=== PATIENT | female | born 1960 | race Caucasian/White ===

== ENCOUNTER 2016-08-07 11:41 | Outpatient (CLI) ==
[2016-04-04 10:28] VITALS: BMI 57.2
--- NOTE | 2016-08-07 12:30 | DI ---
EXAM: Cervical spine radiographs. HISTORY: Back pain. COMPARISON: None available. TECHNIQUE: Frontal, lateral and odontoid views. FINDINGS: The normal curvature and alignment are maintained. Vertebral body heights are maintained. There is moderate loss of disc height at C5-6. Endplate osteophyte formation at C5-6 noted. Unco vertebral hypertrophy and facet arthropathy seen throughout the cervical spine, greater in the lower cervical spine. No fracture or subluxation detected. Prevertebral soft tissues are unremarkable. IMPRESSION: Multilevel degenerative changes, greatest at C5-6. Consider MRI if further evaluation is needed.
== END 2016-08-07 11:42 | disposition home or self-care (01) ==
LOC: RAD 11:41
PROVIDERS: ATTEND Nurse Practitioner Family
DX: M54.2 Cervicalgia (principal)

== ENCOUNTER 2016-08-09 07:57 | Outpatient (CLI) ==
[2016-04-04 10:28] VITALS: BMI 57.2
--- NOTE | 2016-08-09 16:10 | MRI ---
EXAM: Cervical spine MRI without contrast. HISTORY: Cervical disc degeneration. COMPARISON: Cervical spine radiographs 08/07/2016. TECHNIQUE: Multiplanar, multisequence MR images were acquired cervical spine without contrast. FINDINGS: The craniocervical junction is unremarkable. The cervical cord has normal signal intensi ty. There is under pneumatization of the inferior left mastoid air cells with mild mucosal thickeni ng in several inferior left mastoid air cells. Mild mucosal thickening and a small amount of fluid i s also present in a mild number of the inferior right mastoid air cells. There is mild mucosal thic kening in the right maxillary sinus and a small mucous retention cyst in the left. There is mild st raightening of the usual cervical lordosis and 1 mm retrolisthesis of C5 on C6. The cervical verteb ra are normal in height and intrinsic bone marrow signal. There is osteophytosis with disc space na rrowing and degenerative endplate changes at C5-6 and C6-7. A small benign intraosseous hemangioma is present at C7. There are no paravertebral masses. Small perineural cysts are present. Visualiz ed lung apices are clear. C2-3: The intervertebral disc is normal. C3-4: There is a mild disc bulge and minor bilateral uncovertebral hypertrophy. There is no forami nal stenosis or central canal stenosis. C4-5: There is a minor left posterior disc osteophyte complex and mild left neural foraminal stenos is. C5-6: There is a diffuse disc osteophyte complex with a more focal right paracentral component that minimally indents the right ventral cervical cord. Ligamentum flavum hypertrophy and bilateral unco vertebral hypertrophy are present. There is mild spinal stenosis and mild to moderate bilateral for aminal stenosis. AP diameter of the thecal sac is 9.3 mm. C6-7: There is a diffuse disc osteophyte complex with a more focal left paracentral dorsal bony rid ge that mildly indents the cervical cord. Ligamentum flavum hypertrophy and moderate left uncoverte bral hypertrophy is present. This causes mild spinal stenosis and mild left foraminal stenosis. AP diameter of the thecal sac is 9.4 mm. C7-T1:. There is a mild disc bulge that is asymmetric to the right with right posterior endplate ost eophytes. The disc component is larger than the osteophyte component. This merges with right uncov ertebral hypertrophy. There is mild right foraminal stenosis. T1-2: There is a dorsal spondylitic ridge with a small central disc extrusion that is incompletely visualized. IMPRESSION: 1. Mild cervical degenerative spondylosis with mild spinal stenosis at C5-6 and C6-7. 2. Central disc herniation T1-2.
== END 2016-08-09 07:58 | disposition home or self-care (01) ==
LOC: RAD 07:57
PROVIDERS: ATTEND Nurse Practitioner Family
DX: M50.30 Other cervical disc degeneration, unspecified cervical region (principal)

== ENCOUNTER 2016-08-21 11:10 | Outpatient (CLI) ==
[2016-04-04 10:28] VITALS: BMI 57.2
[2016-08-21 11:47] LABS: BASOPHILS # (AUTO) 0.1 K/uL (0-0.2); BASOPHILS % (AUTO) 1.1 % (0.0-3.0); EOSINOPHILS # (AUTO) 0.3 K/ul (0.0-0.7); EOSINOPHILS % (AUTO) 6.2 % (0.0-7.0); HEMATOCRIT 42.3 % (37.0-47.0); HEMOGLOBIN 14.1 g/dl (12.0-16.0); IMMATURE GRANULOCYTE % (AUTO) 0.2 % (0.0-5.0); LYMPHOCYTES # (AUTO) 1.5 K/uL (0.60-3.4); LYMPHOCYTES % (AUTO) 32.1 (10.0-50.0); MEAN CORPUSCULAR HEMOGLOBIN 27.6 pg (27.0-31.0); MEAN CORPUSCULAR HGB CONC 33.3 (31.8-35.4); MEAN CORPUSCULAR VOLUME 82.9 fl (81.0-99.0); MONOCYTES # (AUTO) 0.5 K/uL (0.4-2.0); MONOCYTES % (AUTO) 10.8 (0-10); NEUTROPHILS # (AUTO) 2.3 K/ul (2.0-6.9); NEUTROPHILS % (AUTO) 49.6; PLATELET COUNT 219 10^3/uL (140-440); WHITE BLOOD COUNT 4.71 K/ul (4.6-10.2)
[2016-08-21 12:05] LABS: ALBUMIN 3.6 g/dL (3.4-5.0); ALBUMIN/GLOBULIN RATIO 1.03; BILIRUBIN,TOTAL 0.57 mg/dL (0.00-1.20); BUN/CREATININE RATIO 12.22; CALCIUM 9.3 mg/dL (8.2-10.2); CHOL/HDL RATIO 3.2 (4.5-5.5); CREATININE 0.9 mg/dL (0.60-1.30); TOTAL PROTEIN 7.1 g/dL (6.4-8.2)
== END 2016-08-21 11:11 | disposition home or self-care (01) ==
LOC: LAB 11:10
PROVIDERS: ATTEND Nurse Practitioner Family
DX: E75.6 Lipid storage disorder, unspecified (principal)
CPT/HCPCS: 36415; 80053; 80061; 85025

== ENCOUNTER 2016-09-11 11:14 | Outpatient (CLI) ==
[2016-04-04 10:28] VITALS: BMI 57.2
--- NOTE | 2016-09-12 08:04 | MAMMO ---
EXAM: Digital screening mammogram HISTORY: Screening mammogram COMPARISON: Mammogram 08/26/2015 FINDINGS: Bilateral CC and MLO views of the breasts were performed digitally and demonstrate fatty breast density (up to 25%). There is no abnormal nodule or calcification. Axillary peripherally calc ified lymph nodes are unchanged. There is no significant interval change. IMPRESSION: No suspicious nodule or calcification RECOMMENDATION: Annual screening mammogram BIRADS category 1: Negative
== END 2016-09-11 11:15 | disposition home or self-care (01) ==
LOC: RAD 11:14
PROVIDERS: ATTEND Nurse Practitioner Family
DX: Z12.31 Encounter for screening mammogram for malignant neoplasm of breast (principal)

== ENCOUNTER 2016-11-29 14:00 | Outpatient (RCR) ==
[2016-04-04 10:28] VITALS: BMI 57.2
--- NOTE | 2016-11-09 16:34 | RS.OPPTEV2 ---
Date of Note: 11/08/16 Visit #: 1 Date of Evaluation: 11/08/16 Payer Source: Medicaid Surgery Performed?: Yes Procedure Performed: Anterior Cervical Fusion 2 levels Date of Procedure: 10/18/16 Treatment Diagnosis: Neck pain, UE weakness, s/p ACF History of Condition/Mechanism of Injury:: Patient reports she had progressive pain and weakness in her UE's for a couple of years prior to having surgery. Prior Level of Function.....Patient was independent with: ADL's, Self Care, Caregiving, Ambulation/Mobility, Community Integration/Access Functional Limitations: ADL's, Reaching, Pushing, Pulling, Lifting, Carrying Current Subjective/complaints:: Patient reports surgery has resolved most of her syptoms. States she still has some shaking in her UE's. She is currently weaning from a rigid cervical collar. States she wears the collar at night and will wear it off and on during the day depending on how her neck feels. She is not driving and has been following her surgeon's instructions to avoid raising her arms over her head or performing any lifting. Reports some tension in the right upper traps region. Reports difficulty with several ADL's and selfcare activites due to having to limit raising her arms over her head and some discomfort in the neck with use of her arms. Medical History Medical History: Hypertension, Arthritis Hx Home Medications: Proventil, Xanax, Lotrel, Wellbutrin, Lodine, Neurontin, Robaxin, Seroquel Patient's Goals: Her goal is to return to her previous level of function. Pain Assessment - Pain Description Pain Location: neck pain Current Pain Intensity: 2/10 Worst Pain Intensity: 10+/10 Functional Outcome Measure Neck Disability Index: 66 - G Codes & Severity Modifier G Codes & Modifier: nA Source of G Code score: NA Observation - Observation Inspection: Patient presents with a clean, well-healing horizontal incision on the right side of the anterior region of the cervical spine. Handedness: Right - ROM Comments: Cervical AROM not asssessed due to proximity of surgery date. Bilateral UE AROM is 75% of normal range with some tension reported in the neck region at end range. - Strength Cervical Extension: 4 Good Cervical Flexion: 4 Good Cervical Lateral Flexion: 4 Good Comments: Bilateral shoulder strength generally 4/5, elbows 4+/5, left wrist extension 4/5, right wrist extension 4+/5. 21 Dealer Strength Left Hand 21 Dealer Strength: 26 lbs. Right Hand 21 Dealer Strength: 34 lbs. Dynamometer Testing Position: 2nd Position Palpation Comments:: Patient demonstrates moderate muscle guarding along bilateral upper traps and minimal to moderate increased tone along the cervical paraspinals. Reports no signficant tenderness in these regions with moderate pressure. Sensation - Sensation Right Upper Extremity: Intact/Normal Left Upper Extremity: Intact/Normal Interventions - Exercise/Activities/Manual Therapy Exercises/Activities: Instructed patient in very gentle cervical stability exercises: head and neck supported nods and rotation in very limited range. Also instructed in gentle neck isometrics. Manual Therapy: NA HOME EXERCISE PROGRAM: very gentle cervical stability exercises: head and neck supported nods and rotation in very limited range. Also instructed in gentle neck isometrics. - Charges Total Direct Minutes: 45 mins Total Treatment Time: 45 mins Procedures billed for this date of service:: Víctor Low complexity X3 Assessment Assessment: Patient presents to therapy three weeks s/p ACF. She demonstrates limited cervical ROM, general weakness of the cervical spine and UE's, and minimal to moderate muscle guarding throughout the upper traps and cervical parspinals. She will benefit from exercises to promote stabilization of the cervical spine and progressed exercises for AROM as appropriate. Education of body mechanics and good posture with help improve her postural awareness. Patient Education: Education of diagnosis, Body/Joint mechanics, Home Exercise Program, Home Safety, Activity Modification, Education of Plan of Care Rehab Potential: Good Short Term Goals Goal #1: Patient independent in basic HEP. Goal to be met by: 11/23/16 Goal #2: Muscle tone along bilateral upper traps decreased to minimal. Goal to be met by: 11/23/16 Goal #3: Bilateral shoulder AROM WFL's without neck discomfort. Goal to be met by: 11/30/16 [place] Goals Goal #1: Pt knows HEP and to continue ex's to maintain functional level at D/C. Goal to be met by: 12/19/16 Goal #2: Score on Neck Disability Index improved to 36. Goal to be met by: 12/19/16 Goal #3: Pt able to perform all selfcare and ADL's without difficulty or discomfort. Goal to be met by: 12/19/16 Goal #4: Patient will demonstrate good postural awareness. Goal to be met by: 12/19/16 Plan - Treatment to be Provided Procedures: Therapeutic Exercises, Therapeutic Activity, Manual Therapy, Patient Education Modalities: Electrical Stimulation, Ultrasound/Phonophoresis, Cryotherapy, Hot Packs - Treatment Plan Frequency: 2-3 X week Duration: 4 weeks ORDER # VISITS AND/OR THROUGH DATE: 12/19/16 - Treatment Code (1) Neck pain Comments: M54.2 (2) Weakness of both upper extremities Comments: M62.81 (3) Status post cervical spinal fusion Comments: Z98.1
--- NOTE | 2016-11-13 11:15 | RS.OPPTDN ---
Subjective Date of Note: 11/13/16 Visit #: 2 Date of Evaluation: 11/08/16 Payer Source: Medicaid Treatment Diagnosis: Neck pain, UE weakness, s/p ACF Current Subjective/complaints:: Patient says her pain is mild right now, but says she does have tightness to both sides of her neck. She says she sleeps with her collar and a particular support pillow. Without the pillow, she is unable to sleep. Pain Assessment - Pain Description Pain Location: neck pain Current Pain Intensity: 2/10 - Treatment Modality: Electrical Stim Unattended Parameters/Method Applied: hivolt 4 small pads @ 65-95 pk volts x 20 mins to bilateral UT Patient Position: Sitting - Heat/Cryotherapy Treatment: Hot Pack (cervical) Interventions - Exercise/Activities/Manual Therapy Exercises/Activities: Patient began gentle passive cspine ROM rotation/SB slow multiple reps. She performs short range scap adduction and shoulder shrugs. Discussed HEP and pain control/positioning at home. Total minutes of Exercise: 13 Manual Therapy: NA HOME EXERCISE PROGRAM: very gentle cervical stability exercises: head and neck supported nods and rotation in very limited range. Also instructed in gentle neck isometrics. - Charges Total Direct Minutes: 13 Total Treatment Time: 33 Procedures billed for this date of service:: hp, estim (un), Assessment: Patient mary lou modality and gentle exercise well with limited range SB and rotation. She admits improved pain and less tension in her shoulders. Patient Education: Education of diagnosis, Body/Joint mechanics, Home Exercise Program, Home Safety, Activity Modification, Education of Plan of Care Patient demonstrates compliance with HEP?: Yes (initiating) Short Term Goals Goal #1: Patient independent in basic HEP. Goal to be met by: 11/23/16 Progress towards Goal:: Progressing Goal #2: Muscle tone along bilateral upper traps decreased to minimal. Goal to be met by: 11/23/16 Goal #3: Bilateral shoulder AROM WFL's without neck discomfort. Goal to be met by: 11/30/16 [place] Goals Goal #1: Pt knows HEP and to continue ex's to maintain functional level at D/C. Goal to be met by: 12/19/16 Goal #2: Score on Neck Disability Index improved to 36. Goal to be met by: 12/19/16 Goal #3: Pt able to perform all selfcare and ADL's without difficulty or discomfort. Goal to be met by: 12/19/16 Goal #4: Patient will demonstrate good postural awareness. Goal to be met by: 12/19/16 Plan PLAN OF CARE EXPIRES ON:: 12/19/16 ORDER # VISITS AND/OR THROUGH DATE: 12/19/16 PLAN: Continue Plan of Care
--- NOTE | 2016-11-15 16:33 | RS.OPPTDN ---
Subjective Date of Note: 11/15/16 Visit #: 3 Date of Evaluation: 11/08/16 Payer Source: Medicaid Treatment Diagnosis: Neck pain, UE weakness, s/p ACF Current Subjective/complaints:: Patient says she is not feeling well today. Says she has been shaky (at both arms and legs). Denies any trouble with blood sugar or BP. Pain Assessment - Pain Description Pain Location: neck pain Current Pain Intensity: 2/10 - Treatment Modality: Electrical Stim Unattended Parameters/Method Applied: hivolt 4 small pads @ 80 pk volts x 20 Treatment Area: bilateral UT and lower cervical paraspinals Patient Position: Sitting - Heat/Cryotherapy Treatment: Hot Pack (cervical) Interventions - Exercise/Activities/Manual Therapy Exercises/Activities: Abbreviated exercises due to patient not feeling well. Cspine ROM passively for SB/rotation. Total minutes of Exercise: 4 Manual Therapy: NA HOME EXERCISE PROGRAM: very gentle cervical stability exercises: head and neck supported nods and rotation in very limited range. Also instructed in gentle neck isometrics. - Charges Total Direct Minutes: 4 Total Treatment Time: 24 Procedures billed for this date of service:: hp, estim (un) Assessment: Patient not feeling well today. Shaky to both arms. Only mild pain to the neck today. Patient Education: Education of diagnosis, Body/Joint mechanics, Home Exercise Program, Home Safety, Activity Modification, Education of Plan of Care Short Term Goals Goal #1: Patient independent in basic HEP. Goal to be met by: 11/23/16 Progress towards Goal:: Progressing Goal #2: Muscle tone along bilateral upper traps decreased to minimal. Goal to be met by: 11/23/16 Goal #3: Bilateral shoulder AROM WFL's without neck discomfort. Goal to be met by: 11/30/16 Energy Director Goals Goal #1: Pt knows HEP and to continue ex's to maintain functional level at D/C. Goal to be met by: 12/19/16 Goal #2: Score on Neck Disability Index improved to 36. Goal to be met by: 12/19/16 Goal #3: Pt able to perform all selfcare and ADL's without difficulty or discomfort. Goal to be met by: 12/19/16 Goal #4: Patient will demonstrate good postural awareness. Goal to be met by: 12/19/16 Plan PLAN OF CARE EXPIRES ON:: 12/19/16 ORDER # VISITS AND/OR THROUGH DATE: 12/19/16 PLAN: Progress Exercises
--- NOTE | 2016-11-20 16:14 | RS.OPPTDN ---
Subjective Date of Note: 11/20/16 Visit #: 4 Date of Evaluation: 11/08/16 Payer Source: Medicaid Treatment Diagnosis: Neck pain, UE weakness, s/p ACF Current Subjective/complaints:: Patient admits improved neck pain and she is weaning from her neck collar while using it mostly in the car or with particular activities. Pain Assessment - Pain Description Pain Location: neck pain Current Pain Intensity: 2/10 - Treatment Modality: Electrical Stim Unattended Parameters/Method Applied: hivolt 2 small pads and 2 large pads to the bilateral lower cervical paraspinals and UT @ 90 pk volts x 20 mins Patient Position: Sitting - Heat/Cryotherapy Treatment: Hot Pack Interventions - Exercise/Activities/Manual Therapy Exercises/Activities: Patient received passive cervical ROM. Shoulder shrugs and scap adduction, cervical neck retraction x 5. Total minutes of Exercise: 12 Manual Therapy: NA HOME EXERCISE PROGRAM: very gentle cervical stability exercises: head and neck supported nods and rotation in very limited range. Also instructed in gentle neck isometrics. - Charges Total Direct Minutes: 12 Total Treatment Time: 32 Procedures billed for this date of service:: hp, estim (Un), ex Assessment: Patient experiencing less neck pain and improved ROM toleration. She is weaning from her brace and denies difficulty as a result. Patient Education: Education of diagnosis, Body/Joint mechanics, Home Exercise Program, Home Safety, Activity Modification, Education of Plan of Care Patient demonstrates compliance with HEP?: Yes Short Term Goals Goal #1: Patient independent in basic HEP. Goal to be met by: 11/23/16 Progress towards Goal:: Progressing Goal #2: Muscle tone along bilateral upper traps decreased to minimal. Goal to be met by: 11/23/16 Goal #3: Bilateral shoulder AROM WFL's without neck discomfort. Goal to be met by: 11/30/16 Care Home Goals Goal #1: Pt knows HEP and to continue ex's to maintain functional level at D/C. Goal to be met by: 12/19/16 Goal #2: Score on Neck Disability Index improved to 36. Goal to be met by: 12/19/16 Goal #3: Pt able to perform all selfcare and ADL's without difficulty or discomfort. Goal to be met by: 12/19/16 Goal #4: Patient will demonstrate good postural awareness. Goal to be met by: 12/19/16 Plan PLAN OF CARE EXPIRES ON:: 12/19/16 ORDER # VISITS AND/OR THROUGH DATE: 12/19/16 PLAN: Continue Plan of Care
--- NOTE | 2016-11-23 14:56 | RS.OPPTDN ---
Subjective Date of Note: 11/23/16 Visit #: 5 Date of Evaluation: 11/08/16 Payer Source: Medicaid Treatment Diagnosis: Neck pain, UE weakness, s/p ACF Current Subjective/complaints:: Patient says she had a good report at her doctor 's office. States she is no longer wearing her neck brace and feels therapy is helping. Pain Assessment - Pain Description Pain Location: neck pain Current Pain Intensity: 2/10 - Treatment Modality: Electrical Stim Unattended Parameters/Method Applied: 2 small pads at the lower cervical paraspinals and 2 large at the UT hivolt x 20 mins @ 120-130 pk volts Patient Position: Sitting - Heat/Cryotherapy Treatment: Hot Pack (cervical) Interventions - Exercise/Activities/Manual Therapy Exercises/Activities: Passive ROM for cspine SB, rotation,. Patient performs shoulder shrugs, scap adduction, neck retraction. Began yellow tband for scap retraction. Total minutes of Exercise: 15 Manual Therapy: NA HOME EXERCISE PROGRAM: very gentle cervical stability exercises: head and neck supported nods and rotation in very limited range. Also instructed in gentle neck isometrics. - Charges Total Direct Minutes: 15 Total Treatment Time: 35 Procedures billed for this date of service:: hp, estim (un), ex Assessment: Patient admits improved pain and mobility to her neck. She received good report from her MD at her follow up. She is only wearing her neck brace with long car rides. She demo improved awareness of posture as well. Patient Education: Education of diagnosis, Body/Joint mechanics, Home Exercise Program, Home Safety, Activity Modification, Education of Plan of Care Patient demonstrates compliance with HEP?: Yes Short Term Goals Goal #1: Patient independent in basic HEP. Goal to be met by: 11/23/16 Progress towards Goal:: Progressing Goal #2: Muscle tone along bilateral upper traps decreased to minimal. Goal to be met by: 11/23/16 Progress towards Goal:: Progressing Goal #3: Bilateral shoulder AROM WFL's without neck discomfort. Goal to be met by: 11/30/16 Progress towards Goal:: Progressing [facility] Goals Goal #1: Pt knows HEP and to continue ex's to maintain functional level at D/C. Goal to be met by: 12/19/16 Goal #2: Score on Neck Disability Index improved to 36. Goal to be met by: 12/19/16 Goal #3: Pt able to perform all selfcare and ADL's without difficulty or discomfort. Goal to be met by: 12/19/16 Goal #4: Patient will demonstrate good postural awareness. Goal to be met by: 12/19/16 Plan PLAN OF CARE EXPIRES ON:: 12/19/16 ORDER # VISITS AND/OR THROUGH DATE: 12/19/16 PLAN: Continue Plan of Care
--- NOTE | 2016-11-27 13:25 | RS.OPPTDN ---
Subjective Date of Note: 11/27/16 Visit #: 6 Date of Evaluation: 11/08/16 Payer Source: Medicaid Treatment Diagnosis: Neck pain, UE weakness, s/p ACF Current Subjective/complaints:: Patient says she can't believe how well she is doing. She says she is pleased with the increase in ROM. Pain Assessment - Pain Description Pain Location: neck pain Current Pain Intensity: 2/10 - Treatment Modality: Electrical Stim Unattended Parameters/Method Applied: hivolt 2 small pads to the lower cervical paraspinals and 2 large at UT @ 130-145 pk volts x 20 mins for muscle guarding and improve mobility/pain Patient Position: Sitting - Heat/Cryotherapy Treatment: Hot Pack Interventions - Exercise/Activities/Manual Therapy Exercises/Activities: Passive ROM for cspine SB, rotation,. Patient performs shoulder shrugs, scap adduction, neck retraction. Began yellow tband for scap retraction. Cane for bilateral shoulder flexion x 10 to shoulder height. Total minutes of Exercise: 15 Manual Therapy: NA HOME EXERCISE PROGRAM: very gentle cervical stability exercises: head and neck supported nods and rotation in very limited range. Also instructed in gentle neck isometrics. - Charges Total Direct Minutes: 15 Total Treatment Time: 35 Procedures billed for this date of service:: hp, estim (un), ex Assessment: Patient demo 75% of passive SB and rotation norm. Less discomfort noted with all motions. Now demo mild to mod muscle guarding throughout bilateral UT and MT. Good mary lou of bilateral UE lift using cane. Patient Education: Education of diagnosis, Body/Joint mechanics, Home Exercise Program, Home Safety, Activity Modification, Education of Plan of Care Patient demonstrates compliance with HEP?: Yes Short Term Goals Goal #1: Patient independent in basic HEP. Goal to be met by: 11/23/16 Progress towards Goal:: Progressing Goal #2: Muscle tone along bilateral upper traps decreased to minimal. Goal to be met by: 11/23/16 Progress towards Goal:: Progressing Goal #3: Bilateral shoulder AROM WFL's without neck discomfort. Goal to be met by: 11/30/16 Progress towards Goal:: Progressing Medical Office Technologist Goals Goal #1: Pt knows HEP and to continue ex's to maintain functional level at D/C. Goal to be met by: 12/19/16 Goal #2: Score on Neck Disability Index improved to 36. Goal to be met by: 12/19/16 Goal #3: Pt able to perform all selfcare and ADL's without difficulty or discomfort. Goal to be met by: 12/19/16 Goal #4: Patient will demonstrate good postural awareness. Goal to be met by: 12/19/16 Plan PLAN OF CARE EXPIRES ON:: 12/19/16 ORDER # VISITS AND/OR THROUGH DATE: 12/19/16 PLAN: Progress Exercises
--- NOTE | 2016-11-29 14:33 | RS.OPPTDN ---
Subjective Date of Note: 11/29/16 Visit #: 7 Date of Evaluation: 11/08/16 Payer Source: Medicaid Treatment Diagnosis: Neck pain, UE weakness, s/p ACF Current Subjective/complaints:: Pleased with her progress,is doing her exercises as directed. Pain Assessment - Pain Description Pain Location: neck pain Current Pain Intensity: 1-2/10 - Treatment Modality: Electrical Stim Unattended Parameters/Method Applied: 20 mins. high volt to cervical/UT's channel 1 (small electrodes) @ 155 pv,channel 2 (large electrodes) @ 130 pv. Patient Position: Sitting - Heat/Cryotherapy Treatment: Hot Pack (concurrent with e-stim) Interventions - Exercise/Activities/Manual Therapy Exercises/Activities: HEP review while on modalities.Abbreviated treatment today due to another appt.,requesting to leave early. Total minutes of Exercise: 0 Manual Therapy: NA Total minutes of Manual Therapy: 0 HOME EXERCISE PROGRAM: very gentle cervical stability exercises: head and neck supported nods and rotation in very limited range. Also instructed in gentle neck isometrics. - Charges Total Direct Minutes: 0 Total Treatment Time: 20 Procedures billed for this date of service:: hp,e-stim Assessment: Cervical ROM not assessed today,modalities only due to having to leave early.She does understand the HEP recommendations ,and to avoid overhead motions at this time. Patient Education: Education of Plan of Care Patient demonstrates compliance with HEP?: Yes Short Term Goals Goal #1: Patient independent in basic HEP. Goal to be met by: 11/23/16 Progress towards Goal:: Progressing Goal #2: Muscle tone along bilateral upper traps decreased to minimal. Goal to be met by: 11/23/16 Progress towards Goal:: Progressing Goal #3: Bilateral shoulder AROM WFL's without neck discomfort. Goal to be met by: 11/30/16 Progress towards Goal:: Progressing Half-Way Goals Goal #1: Pt knows HEP and to continue ex's to maintain functional level at D/C. Goal to be met by: 12/19/16 Goal #2: Score on Neck Disability Index improved to 36. Goal to be met by: 12/19/16 Goal #3: Pt able to perform all selfcare and ADL's without difficulty or discomfort. Goal to be met by: 12/19/16 Goal #4: Patient will demonstrate good postural awareness. Goal to be met by: 12/19/16 Plan PLAN OF CARE EXPIRES ON:: 12/19/16 ORDER # VISITS AND/OR THROUGH DATE: 12/19/16 PLAN: Continue Plan of Care
== END 2016-12-03 ==
PROVIDERS: ATTEND Emergency Medicine
DX: M43.22 Fusion of spine, cervical region (principal)

== ENCOUNTER 2016-12-03 09:00 | Outpatient (CLI) ==
[2016-04-04 10:28] VITALS: BMI 57.2
--- NOTE | 2016-12-03 10:34 | MRI ---
EXAM: MRI lumbar spine without IV contrast. DATE: 03 December 2016. HISTORY: Low back pain and left lower extremity numbness. TECHNIQUE: Sagittal and axial T1W and T2W sequences of the lumbar spine along with sagittal IR and coronal T2W sequences were obtained using 1.2 Katie magnet. No IV contrast. COMPARISON: LS spine series 06 April 2016. MRI L-spine 08 Sep 2015. FINDINGS: There are five hxt-qzl-ypmaxyx lumbar vertebra. Minor (4 degrees) leftward curvature of the lumbar spine is observed. No acute lumbar fracture, subluxation, osseous malignancy, or pars in farct T2 there is defect is evident. Lumbar vertebra are normal in height. Chronic, small Schmorl' s node is seen at the L2 inferior endplate. Mild disc space narrowing is detected at L3-4. Remaini ng intervertebral discs are normal in height. No sacral fracture or stress reaction is evident. SI joints are unremarkable. Conus medullaris terminates at T12. Visible spinal cord is normal. No retroperitoneal lymphadenopathy, paraspinal mass, or aortic aneurysm is detected. Psoas muscles are normal. There is minor bilateral posterior paraspinal muscle fatty infiltration. Visible porti ons of the liver, spleen, adrenal glands and kidneys are limited by breathing motion artifacts, but reveal no definitive malignancy. Segmental analysis: T11-12: Normal. T12-L1: Normal. L1-2: Normal. L2-3: Normal. L3-4: Small concentric disc bulge and minor facet disease cause triangulation of the canal and mini mal bilateral inferior foraminal encroachment. L4-5: Small posterior to foraminal disc bulge, superimposed left paracentral disc protrusion (2.9 m m AP by 9 mm transverse) and mild facet disease cause mild central canal stenosis, minor right tino inal narrowing, and moderate narrowing at the opening to left foramen. Left L4 nerve root contacts t he disc bulge near the lateral aspect of the foramen. L5-S1: Posterior midline disc protrusion (3.3 mm AP x 10.5 mm transverse) and mild facet disease ca use triangulation of the canal and minimal left foraminal narrowing. IMPRESSIONS: 1. Lumbar spine mild facet arthropathy and multilevel DDD. 2. Multilevel central canal stenoses (L3-4: Triangulation of the canal. L4-5: Mild. L5-S1: Trian gulation of canal). 3. Multilevel foraminal narrowing, especially left L4-5. Left L4 nerve root contacts disc bulge ne ar the foramen, and could be a source for left lower extremity pain/radiculopathy.
== END 2016-12-03 09:01 | disposition home or self-care (01) ==
LOC: RAD 09:00
PROVIDERS: ATTEND Nurse Practitioner Family
DX: M12.88 Other specific arthropathies, not elsewhere classified, other specified site (principal)

== ENCOUNTER 2016-12-13 15:00 | Outpatient (RCR) ==
[2016-09-11 11:18] VITALS: BMI 57.2
--- NOTE | 2016-12-04 15:48 | RS.OPPTDN ---
Subjective Date of Note: 12/04/16 Visit #: 8 Date of Evaluation: 11/08/16 Payer Source: Medicaid Treatment Diagnosis: Neck pain, UE weakness, s/p ACF Current Subjective/complaints:: Patient says she is doing well with exercises for her neck. She says her neck pain has been better. Pain Assessment - Pain Description Pain Location: neck pain Current Pain Intensity: 1-2/10 - Treatment Modality: Electrical Stim Unattended Parameters/Method Applied: hivolt 2 large pads UT, 2 small pads at lower cervical paraspinals @ 115 pk volts x 20 mins Patient Position: Sitting - Heat/Cryotherapy Treatment: Hot Pack Interventions - Exercise/Activities/Manual Therapy Exercises/Activities: Patient receives PROM for SB/rotation, scap add, isometric neck retraction, L and R SB, shoulder shrugs, yellow tband scap retraction, 1# wand for bilateral shoulder flexion to 90 degrees. All x 10. Total minutes of Exercise: 16 Manual Therapy: NA HOME EXERCISE PROGRAM: very gentle cervical stability exercises: head and neck supported nods and rotation in very limited range. Also instructed in gentle neck isometrics. - Charges Total Direct Minutes: 16 Total Treatment Time: 36 Procedures billed for this date of service:: hp, estim (un), ex Assessment: Patient progressing well with pain reduction and ability to mary lou increasing exercises without c/o'. Improved ROM demonstrated in the past week visits. Patient Education: Education of diagnosis, Body/Joint mechanics, Home Exercise Program, Home Safety, Activity Modification, Education of Plan of Care Patient demonstrates compliance with HEP?: Yes Short Term Goals Goal #1: Patient independent in basic HEP. Goal to be met by: 11/23/16 Progress towards Goal:: Progressing Goal #2: Muscle tone along bilateral upper traps decreased to minimal. Goal to be met by: 11/23/16 Progress towards Goal:: Progressing Goal #3: Bilateral shoulder AROM WFL's without neck discomfort. Goal to be met by: 11/30/16 Progress towards Goal:: Progressing Phd Intern Goals Goal #1: Pt knows HEP and to continue ex's to maintain functional level at D/C. Goal to be met by: 12/19/16 Goal #2: Score on Neck Disability Index improved to 36. Goal to be met by: 12/19/16 Goal #3: Pt able to perform all selfcare and ADL's without difficulty or discomfort. Goal to be met by: 12/19/16 Goal #4: Patient will demonstrate good postural awareness. Goal to be met by: 12/19/16 Plan PLAN OF CARE EXPIRES ON:: 12/19/16 ORDER # VISITS AND/OR THROUGH DATE: 12/19/16 PLAN: Progress Exercises
--- NOTE | 2016-12-06 15:22 | RS.OPPTDN ---
Subjective Date of Note: 12/06/16 Visit #: 9 Date of Evaluation: 11/08/16 Payer Source: Medicaid Treatment Diagnosis: Neck pain, UE weakness, s/p ACF Current Subjective/complaints:: Patient says she is pleased with how well her neck is feeling and her motion. She says she is able to perform more ADLs Pain Assessment - Pain Description Pain Location: neck pain Current Pain Intensity: 1-2/10 - Treatment Modality: Electrical Stim Unattended Parameters/Method Applied: hivolt 20 mins 1 small, 1 large pad for the L and 1 small, 1 large for the R UT @ 145-155 pk volts Patient Position: Sitting - Heat/Cryotherapy Treatment: Hot Pack Interventions - Exercise/Activities/Manual Therapy Exercises/Activities: Patient receives PROM for SB/rotation, scap add, isometric neck retraction, L and R SB, shoulder shrugs, yellow tband scap retraction, 1 1/2# wand for bilateral shoulder flexion to 90 degrees. All x 10. Red tband for bilateral shoulder ER x 10. 7# digiflexors bilaterally x 10. Total minutes of Exercise: 18 Manual Therapy: NA HOME EXERCISE PROGRAM: very gentle cervical stability exercises: head and neck supported nods and rotation in very limited range. Also instructed in gentle neck isometrics. - Charges Total Direct Minutes: 18 Total Treatment Time: 38 Procedures billed for this date of service:: hp, estim (un), ex Assessment: Patient maintaining low pain level to the neck and is able to demo increased ROM/strength with UE's and cspine. Patient Education: Education of diagnosis, Body/Joint mechanics, Home Exercise Program, Home Safety, Activity Modification, Education of Plan of Care Patient demonstrates compliance with HEP?: Yes Short Term Goals Goal #1: Patient independent in basic HEP. Goal to be met by: 11/23/16 Progress towards Goal:: Met Goal #2: Muscle tone along bilateral upper traps decreased to minimal. Goal to be met by: 11/23/16 Progress towards Goal:: Progressing Goal #3: Bilateral shoulder AROM WFL's without neck discomfort. Goal to be met by: 11/30/16 Progress towards Goal:: Progressing Build Engineer Goals Goal #1: Pt knows HEP and to continue ex's to maintain functional level at D/C. Goal to be met by: 12/19/16 Progress towards goal: Progressing Goal #2: Score on Neck Disability Index improved to 36. Goal to be met by: 12/19/16 Goal #3: Pt able to perform all selfcare and ADL's without difficulty or discomfort. Goal to be met by: 12/19/16 Progress towards goal: Progressing Goal #4: Patient will demonstrate good postural awareness. Goal to be met by: 12/19/16 Progress towards goal: Progressing Plan PLAN OF CARE EXPIRES ON:: 12/19/16 ORDER # VISITS AND/OR THROUGH DATE: 12/19/16 PLAN: Progress Exercises
--- NOTE | 2016-12-11 09:55 | RS.CXNS ---
Date of scheduled appointment: 12/11/16 Type: Cancel Reason for Cancel/NS: patient calls sick
--- NOTE | 2016-12-13 16:41 | RS.OPPTDN ---
Subjective Date of Note: 12/13/16 Visit #: 10 Date of Evaluation: 11/08/16 Payer Source: Medicaid Treatment Diagnosis: Neck pain, UE weakness, s/p ACF Current Subjective/complaints:: Patient says she is quite pleased with progress of her neck. She says all exercises feel good and she is performing tasks easier at home. She says she had a good report from her MD yesterday and will need to begin PT for her back once she has completed for her neck. She expresses being grateful for PT and progress she has made. Pain Assessment - Pain Description Pain Location: neck pain Current Pain Intensity: none - Treatment Modality: Electrical Stim Unattended Parameters/Method Applied: hivolt 1 small and 1 large for L lower cervical paraspinals/UT and 1 small/1 large for the R @ 165 pk volts x 15 mins (for muscle guarding) Patient Position: Sitting - Heat/Cryotherapy Treatment: Hot Pack Interventions - Exercise/Activities/Manual Therapy Exercises/Activities: Patient receives PROM for SB/rotation, scap add, isometric neck retraction, L and R SB, shoulder shrugs, progressed to red tband scap retraction, 1 1/2# wand for bilateral shoulder flexion to 90 degrees. All x 10. Red tband for bilateral shoulder ER x 10. 7# digiflexors bilaterally x 10. Provided HEP with tbands and reassessed for cervical index. Total minutes of Exercise: 17 Manual Therapy: NA HOME EXERCISE PROGRAM: very gentle cervical stability exercises: head and neck supported nods and rotation in very limited range. Also instructed in gentle neck isometrics. - Charges Total Direct Minutes: 17 Total Treatment Time: 37 Procedures billed for this date of service:: hp, estim (un), ex Assessment: Cervical Pain Index: score 17 or 34% impairment. (Eval score was 33 or 66% impairment). Demo AROM WFL and without pain, progressing with all postural exercises and cspine ROM well. Patient Education: Education of diagnosis, Body/Joint mechanics, Home Exercise Program, Home Safety, Activity Modification, Education of Plan of Care Patient demonstrates compliance with HEP?: Yes Short Term Goals Goal #1: Patient independent in basic HEP. Goal to be met by: 11/23/16 Progress towards Goal:: Met Goal #2: Muscle tone along bilateral upper traps decreased to minimal. Goal to be met by: 11/23/16 Progress towards Goal:: Met Goal #3: Bilateral shoulder AROM WFL's without neck discomfort. Goal to be met by: 11/30/16 Progress towards Goal:: Met Cane Flume Watcher Goals Goal #1: Pt knows HEP and to continue ex's to maintain functional level at D/C. Goal to be met by: 12/19/16 Progress towards goal: Met Goal #2: Score on Neck Disability Index improved to 36. Goal to be met by: 12/19/16 Progress towards goal: Met Comments: 34% now and scores 17 Goal #3: Pt able to perform all selfcare and ADL's without difficulty or discomfort. Goal to be met by: 12/19/16 Progress towards goal: Partially Met Goal #4: Patient will demonstrate good postural awareness. Goal to be met by: 12/19/16 Progress towards goal: Met Plan PLAN OF CARE EXPIRES ON:: 12/19/16 ORDER # VISITS AND/OR THROUGH DATE: 12/19/16 PLAN: Plan for Discharge (Patient to begin PT for her back on 01/08/17 per new order)
--- NOTE | 2016-12-18 14:31 | RS.QUICKDC ---
Discharge from PT Date of Discharge: 12/18/16 Number of Visits: 10 Reason for Discharge: Patient has completed original order for her neck s/p ACF and is expresses satisfaction about her results. Patient presents with new order to begin therapy for her back. She wishes to discontinue for her neck since pain is significantly better and mobility has improved. She is performing all HEP and we will start PT for her back in January. See daily notes for specific treatment.
== END 2017-01-03 ==
PROVIDERS: ATTEND Emergency Medicine
DX: M43.22 Fusion of spine, cervical region (principal)

== ENCOUNTER 2017-02-01 10:00 | Outpatient (RCR) ==
[2016-09-11 11:18] VITALS: BMI 57.2
--- NOTE | 2017-01-31 11:40 | RS.OPPTEV2 ---
Date of Note: 01/28/17 Visit #: 1 Date of Evaluation: 01/28/17 Payer Source: Medicaid Surgery Performed?: Yes Treatment Diagnosis: low back pain, radiating symptoms into LE's. History of Condition/Mechanism of Injury:: Patient reports she had progressive pain in her back for a few years. States she has had LE symptoms for two years. She just had cervical fusion surgery in October of this year. Prior Level of Function.....Patient was independent with: ADL's, Self Care, Caregiving, Ambulation/Mobility, Community Integration/Access Functional Limitations: ADL's, Reaching, Pushing, Pulling, Lifting, Carrying, Sitting, Standing, Ambulation, Community Access/Integration Current Subjective/complaints:: Patient reports having symptoms in her LE's for ~ two years. States she gets numbness into the LE's with prolonged sitting. States she loves to play cards, but cannot tolerate sitting long enough to play. She also reports pain into the legs and low back with prolonged walking. She uses a cane for ambulation. She reports having repeated falls. Reports no falls since her neck surgery in October of this year. She cannot tolerate grocery shopping without the use of an electric cart. States she gets limited sleep at night. Reports waking up 3-4 times a night due to back and/or leg pain. States she has not been able to find anything to decrease her pain. She feels her hips and back get hot at times. States she currently has pain in the posterior region of lower thighs. Medical History Medical History: Hypertension, Arthritis Surgical History: Cholecystectomy, Hysterectomy Surgical History Comments:: Cervical spine surgery 10/20, appendectomy Smoking Status: Former smoker Hx Home Medications: Proventil, Xanax, Lotrel, Wellbutrin, Lodine, Neurontin, Robaxin, Seroquel Patient's Goals: Her goal is to get relief of back pain and LE symptoms. Pain Assessment - Pain Description Pain Location: low back and LE pain Current Pain Intensity: 7/10 Worst Pain Intensity: 10/10 Functional Outcome Measure Oswestry LBP: 80 - G Codes & Severity Modifier G Codes & Modifier: NA Source of G Code score: NA Gait - Gait Pattern Gait Comments: Patient ambulates with a straight cane. She demonstrates a cautious gait. She demonstrates no loss of balance. Consistently clears both feet. Demonstrates decreased left hip flexion during swing phase. - ROM Comments: Lumbar flexion is ~50 % of normal range, with reports of right Low back pain. Lumbar extension is limited 50% with reports of low back pain. Sidebending are equally WFL's with no reports of increased pain. Bilateral LE AROM is WFL's. - Strength Comments: Trunk strength generally 4/5. Resisted left hip flexion and abduction elicits pain in the left low back and left hip. Left hip strength 4/ 5 throughout. Right hip strength 4 to 4+/5. Bilateral knees and ankles 4+/5. - Special Tests SLR Test: Negative Left, Negative Right Seated Dural Stretch Test: Negative Left, Negative Right SI Joint Compression: Negative Palpation Comments:: Patient reports tenderness to light touch to the lumbar paraspinals bilaterally. Reports slight tenderness with central PA's over the lower lumbar vertebrae. Reports tenderness over the left greater trochanter and along the IT band of the left LE. Sensation - Sensation Comments: Patient reports less sensitivity to light touch along the left lateral thigh and lower leg. Sensation to deep pressure is intact. Additional Comments: Additional Comments: SLR in supine: right 60 degrees, left 45-50 degrees. Pain with left SLR. Interventions - Exercise/Activities/Manual Therapy Exercises/Activities: NA Manual Therapy: NA HOME EXERCISE PROGRAM: none given at evaluation - Charges Total Direct Minutes: 50 mins Total Treatment Time: 50 mins Procedures billed for this date of service:: EVAL Low X 3 Assessment Assessment: Patient presents to therapy with a diagnosis of Degeneration of lumbar intervertebral disc and spinal stenosis. She reports numbness in her LE' s with prolonged sitting, and pain into the LE's with prolonged standing and walking. Lumbar ROM is limited due to back pain. She report pain with resisted left hip abduction and flexion. Left hip demonstrates less flexibility in the HS. She reports tenderness with palpation to the lumbar paraspinals and the left greater trochanter and IT band. She may be demonstrating symptoms from the lumbar spine, as well as left hip bursitis. She demonstrates potential to get some relief of LE symptoms and back pain with modalites as indicated and exercises to improve trunk and hip strength. Patient Education: Education of diagnosis, Body/Joint mechanics, Home Safety, Education of Plan of Care Rehab Potential: Good Short Term Goals Goal #1: Patient independent in basic HEP. Goal to be met by: 02/13/17 Goal #2: Tenderness to lumbar paraspinals decreased to minimal. Goal to be met by: 02/13/17 Goal #3: LE radiating symptoms localized to the low back. Goal to be met by: 02/13/17 Shelter Goals Goal #1: Pt knows HEP and to continue ex's to maintain functional level at D/c. Goal to be met by: 03/11/17 Goal #2: Score on Oswestry LBP scale improved to 55. Goal to be met by: 03/11/17 Goal #3: Pt will tolerate sitting as needed with minimal back or LE symptoms. Goal to be met by: 03/11/17 Goal #4: Pt able to amb. to perform light grocery shopping w/ minimal back pain. Goal to be met by: 03/11/17 Plan - Treatment to be Provided Procedures: Therapeutic Exercises, Therapeutic Activity, Neuromuscular Rehab, Patient Education Modalities: Electrical Stimulation, Ultrasound/Phonophoresis, Cryotherapy, Hot Packs - Treatment Plan Frequency: 3 X week Duration: 4 weeks ORDER # VISITS AND/OR THROUGH DATE: 03/11/17 - Treatment Code (1) Low back pain Code(s): M54.5 - LOW BACK PAIN Qualifiers: Chronicity: chronic Back pain laterality: unspecified Sciatica presence: unspecified whether sciatica present Qualified Code(s): M54.5 - Low back pain ; G89.29 - Other chronic pain (2) Radicular leg pain Code(s): M54.10 - RADICULOPATHY, SITE UNSPECIFIED Comments: M54.10 (3) Other intervertebral disc degeneration, lumbar region Code(s): M51.36 - OTHER INTERVERTEBRAL DISC DEGENERATION, LUMBAR REGION Comments: M51.36 (4) Lumbar spinal stenosis Code(s): M48.06 - SPINAL STENOSIS, LUMBAR REGION Comments: M48.06
--- NOTE | 2017-02-01 11:03 | RS.OPPTDN ---
Subjective Date of Note: 02/01/17 Visit #: 2 Date of Evaluation: 01/28/17 Payer Source: Medicaid Treatment Diagnosis: low back pain, radiating symptoms into LE's. Current Subjective/complaints:: Patient reports moderate back pain. Reports she is getting out in community more and will try to increase walking. Pain Assessment - Pain Description Pain Location: low back and LE pain Current Pain Intensity: moderate Interventions - Exercise/Activities/Manual Therapy Exercises/Activities: Mat exercise of quad sets, isometric hip add, alt LE lifts , SLR, pelvic tilts, SLR, and isometric trunk rotation. In sitting, red theraband for scapular retraction. Reviewed dx, body mechanics, posture, and instruction in initiation of walking program. Discussion of HEP and patinet given copies. Total minutes of Exercise: 40mins Manual Therapy: NA HOME EXERCISE PROGRAM: Isometric hip add, alt LE lifts, SLR, pelvic tilts. Red theraband for scapular retraction. Begin walking program 3-5mins. - Charges Total Direct Minutes: 40mins Total Treatment Time: 40mins Procedures billed for this date of service:: EX3 Assessment: Patient seems motivated to progress with exercise and walking program. Patient Education: Education of diagnosis, Body/Joint mechanics, Home Exercise Program, Home Safety, Activity Modification Patient demonstrates compliance with HEP?: Yes Short Term Goals Goal #1: Patient independent in basic HEP. Goal to be met by: 02/13/17 Progress towards Goal:: Progressing Goal #2: Tenderness to lumbar paraspinals decreased to minimal. Goal to be met by: 02/13/17 Goal #3: LE radiating symptoms localized to the low back. Goal to be met by: 02/13/17 Nursing Home Goals Goal #1: Pt knows HEP and to continue ex's to maintain functional level at D/c. Goal to be met by: 03/11/17 Goal #2: Score on Oswestry LBP scale improved to 55. Goal to be met by: 03/11/17 Goal #3: Pt will tolerate sitting as needed with minimal back or LE symptoms. Goal to be met by: 03/11/17 Goal #4: Pt able to amb. to perform light grocery shopping w/ minimal back pain. Goal to be met by: 03/11/17 Plan PLAN OF CARE EXPIRES ON:: 03/11/17 ORDER # VISITS AND/OR THROUGH DATE: 03/11/17 PLAN: Progress Exercises
== END 2017-02-02 ==
PROVIDERS: ATTEND Nurse Practitioner Family
DX: M51.36 Other intervertebral disc degeneration, lumbar region (principal); M48.06 Spinal stenosis, lumbar region

== ENCOUNTER 2017-02-28 14:26 | Outpatient (CLI) ==
[2016-09-11 11:18] VITALS: BMI 57.2
[2017-02-28 14:38] LABS: BASOPHILS % (AUTO) 0.5 % (0.0-3.0); EOSINOPHILS # (AUTO) 0.3 K/ul (0.0-0.7); EOSINOPHILS % (AUTO) 4.7 % (0.0-7.0); HEMATOCRIT 40.7 % (37.0-47.0); HEMOGLOBIN 13.6 g/dl (12.0-16.0); IMMATURE GRANULOCYTE % (AUTO) 0.5 % (0.0-5.0); LYMPHOCYTES # (AUTO) 1.6 K/uL (0.60-3.4); MEAN CORPUSCULAR HGB CONC 33.4 (31.8-35.4); MEAN CORPUSCULAR VOLUME 83.9 fl (81.0-99.0); MONOCYTES # (AUTO) 0.8 K/uL (0.4-2.0); MONOCYTES % (AUTO) 11.6 (0-10); NEUTROPHILS # (AUTO) 3.9 K/ul (2.0-6.9); NEUTROPHILS % (AUTO) 58.7; PLATELET COUNT 242 10^3/uL (140-440); RED BLOOD COUNT 4.85 10^6/ul (4.20-5.40); WHITE BLOOD COUNT 6.57 K/ul (4.6-10.2)
[2017-02-28 15:00] LABS: ALBUMIN 3.5 g/dL (3.4-5.0); ALBUMIN/GLOBULIN RATIO 0.9; ANION GAP 11.6; BILIRUBIN,TOTAL 0.43 mg/dL (0.00-1.20); BUN/CREATININE RATIO 16.47; CALCIUM 9.7 mg/dL (8.2-10.2); CHOL/HDL RATIO 3.3 (4.5-5.5); CREATININE 0.85 mg/dL (0.60-1.30); POTASSIUM 3.6 mmol/L (3.5-5.10); TOTAL PROTEIN 7.4 g/dL (6.4-8.2)
== END 2017-02-28 14:27 | disposition home or self-care (01) ==
LOC: LAB 14:26
PROVIDERS: ATTEND Nurse Practitioner Family
DX: M54.2 Cervicalgia (principal); M43.22 Fusion of spine, cervical region; M50.30 Other cervical disc degeneration, unspecified cervical region; E75.6 Lipid storage disorder, unspecified; F32.9 Major depressive disorder, single episode, unspecified; I10 Essential (primary) hypertension
CPT/HCPCS: 36415; 80053; 80061; 85025

== ENCOUNTER 2017-03-01 09:09 | Outpatient (CLI) ==
[2016-09-11 11:18] VITALS: BMI 57.2
--- NOTE | 2017-03-01 10:37 | DI ---
EXAM: Three views of the right hand. History: Right hand pain. Findings: No acute fracture or dislocation. No abnormal calcifications or radiopaque foreign bodies . Mild polyarticular joint space narrowing. Impression: 1. No acute osseous abnormality. 2. Mild polyarticular arthritis
== END 2017-03-01 09:10 | disposition home or self-care (01) ==
LOC: RAD 09:09
PROVIDERS: ATTEND Emergency Medicine
DX: M79.641 Pain in right hand (principal)

== ENCOUNTER 2017-05-13 13:15 | Outpatient (CLI) ==
[2017-02-28 14:29] VITALS: BMI 57.2
== END 2017-05-13 13:16 | disposition home or self-care (01) ==
LOC: LAB 13:15
PROVIDERS: ATTEND Emergency Medicine
DX: E75.6 Lipid storage disorder, unspecified (principal); I10 Essential (primary) hypertension; F32.9 Major depressive disorder, single episode, unspecified; E66.01 Morbid (severe) obesity due to excess calories
CPT/HCPCS: 36415; 80053; 80061; 82306; 84443; 85025

== ENCOUNTER 2017-05-14 06:26 | Outpatient (CLI) ==
[2017-02-28 14:29] VITALS: BMI 57.2
--- NOTE | 2017-05-15 13:56 | ECHO2D ---
Date of Exam: 05/14/17 Ordering Physician: GIA Room #: OP Reason for Echo: HYPERTENSION,SOB M-Mode Normal Adult Results LV Dimensions Normal Adult Results AoV Opening excursions >1.6 >1.6 LVEDD-base- 3.5-5.8 4.5 Ao root dimensions 2.0-3.7 3.2 LVESD-base- 3.1-4.6 L. Atrium dimensions 1.9-3.8 4.9 Post. Wall thickness 0.8-1.1 1.4 IV septum (thickness) 0.7-1.2 1.3 Post. Wall excursion 0.72-1.3 NORMAL Septal motion NORMAL Systolic motion R. Ventricular cavity 1.5-2.0 NORMAL LVEF 60% 59% Paradoxical septal wall motion NORMAL 2-D : NORMAL LEFT VENTRICULAR CONTRACTILITY--NORMAL VALVES, NO EFFUSION, ENLARGED LEFT ATRIAL CAVITY, NORMAL LEFT VENTRICLE SIZE M-MODE: MV: NORMAL AV: NORMAL TV: NORMAL PV: CHAMBER SIZE: ENLARGED LEFT ATRIAL CAVITY WALL MOTION: NORMAL PERICARDIUM: NORMAL INTERPRETATION: 1. MODERATE LEFT VENTRICULAR HYPERTROPHY 2. ENLARGED LEFT ATRIAL CAVITY 3. NORMAL VALVES 4. NORMAL LEFT VENTRICULAR CONTRACTILITY MTDD
== END 2017-05-14 06:27 | disposition home or self-care (01) ==
LOC: CAR 06:26
PROVIDERS: ATTEND Emergency Medicine
DX: R06.02 Shortness of breath (principal); I10 Essential (primary) hypertension

== ENCOUNTER 2017-05-16 08:41 | Outpatient (CLI) ==
[2017-02-28 14:29] VITALS: BMI 57.2
== END 2017-05-16 08:42 | disposition home or self-care (01) ==
LOC: CAR 08:41
PROVIDERS: ATTEND Emergency Medicine
DX: R06.02 Shortness of breath (principal)

== ENCOUNTER 2017-05-20 06:23 | Outpatient (CLI) ==
[2017-02-28 14:29] VITALS: BMI 57.2
[2017-05-20] MEDS ORDERED: DOBUTAMINE 250 ML IV ONE (07:07)
[2017-05-20] MEDS ORDERED: ATROPINE SULFATE PFS ONE (07:08)
--- NOTE | 2017-05-20 12:07 | NM ---
Cardiac Stress Test HISTORY: Family history of coronary arteriosclerosis, shortness of breath, essential hypertension. COMPARISON: None of this type. TECHNIQUE: Resting: The patient was injected with 3.5 mCi millicuries of 99m technetium Sestamibi (Cardiolite) intravenously after which a "resting" SPECT study of the heart was performed. Stress: The patient was stressed pharmacologically with dobutamine and at the appropriate time injec irina with 24.8 millicuries of 99m technetium Sestamibi (Cardiolite) after which a "stress" SPECT study of the heart was performed. Gated images of the heart were also obtained to assess wall motion and c alculate ejection fraction. For details of the stress protocol employed, reference is made to the se pryor report of the performing physician. FINDINGS: The stress perfusion images demonstrate decreased activity in the anteroseptal wall segmen t extending to near he apex which appears more severe on the resting images. This is not the typical appearance of ischemia. The resting perfusion images demonstrate no evidence of significant redistri bution/ischemia elsewhere. The left ventricular ejection fraction (LVEF) is 57%. IMPRESSION: 1. Left ventricular myocardial perfusion demonstrates no evidence of significant ischemia as discuss ed in the report. There is reduced activity in the anteroseptal wall segment which is more pronounced on the resting images and could represent an area of prior infarct or possibly breast attenuation ar tifact. 2. The left ventricular ejection fraction (LVEF) is 57%.
== END 2017-05-20 06:24 | disposition home or self-care (01) ==
LOC: CAR 06:23
PROVIDERS: ATTEND Emergency Medicine
DX: R06.02 Shortness of breath (principal); I10 Essential (primary) hypertension; E75.6 Lipid storage disorder, unspecified; Z82.49 Family history of ischemic heart disease and other diseases of the circulatory system

== ENCOUNTER 2017-11-01 10:36 | Outpatient (CLI) ==
[2017-02-28 14:29] VITALS: BMI 57.2
--- NOTE | 2017-11-01 15:47 | MRI ---
EXAM: MRI lumbar spine without IV contrast. DATE: 11/01/2017. HISTORY: Dorsaligia. Lumbar prominence worsening since previous MRI. TECHNIQUE: Sagittal and axial T1W and T2W sequences of the lumbar spine along with sagittal IR and c oronal T2W sequences were obtained using 1.2 Katie magnet. No IV contrast. COMPARISON: MRI L-spine 03 December 2016. FINDINGS: There are five lvr-oyj-jigaitg lumbar vertebra. Minor leftward curvature of the lumbar sp ine is redemonstrated. A 2 mm anterior subluxation of S1 relative to L5 is noted. No other subluxat ion, acute fracture, osseous malignancy, or pars interarticularis defect is demonstrated. Lumbar tiff tebrae normal in height. Bone marrow signal is normal. Mild disc space narrowing is detected at L3- 4 and L4-5. Remaining intervertebral discs are normal in height. Mild spinous process arthritis is suspected at L3-4 and L4-5. No acute sacral fracture or stress reaction is identified. SI joints ar e unremarkable. Conus medullaris terminates at T12. Visible spinal cord is normal. No retroperitoneal lymphadenopathy, paraspinal mass, or aortic aneurysm is detected. Psoas muscles a re normal. There is minor bilateral posterior paraspinal muscle atrophy. Visible portions of the li tiff, spleen, adrenal glands, and right kidney are normal. A T2W bright, T1W dark, 3.5 mm focus in th e posteromedial cortex midzone left kidney is not fully characterized. The abdominal organs are poor ly visualized due to breathing motion artifacts. Segmental analysis: T11-12: Normal. T12-L1: Normal. L1-2: Normal. L2-3: Normal, except for minor right foraminal narrowing due to minor facet arthropathy. L3-4: Small concentric disc bulge, mild facet arthropathy, and mild ligamentum flavum hypertrophy ca use mild central canal stenosis and minor/mild bilateral foraminal encroachment. L4-5: Small concentric disc bulge, mild bilateral facet arthropathy, and mild ligamentum flavum hype rtrophy cause mild central canal stenosis, mild right foraminal stenosis, and moderate left foraminal stenosis. Left L4 nerve root contacts the disc bulge near the lateral margin of the foramen. L5-S1: Minor anterior subluxation of S1, posterior midline disc protrusion (2.5 mm AP x 10 mm transv erse), and mild facet arthropathy cause triangulation of the canal and minor left foraminal narrowing . IMPRESSIONS: 1. Lumbar spine minor leftward curvature, mild facet arthropathy, and multilevel DDD. 2. Multilevel lumbar foraminal stenoses - mildly worse at L3-4 and L4-5 compared to November 2016. Left L4 nerve root contacts the disc bulge near the foramen, and may be a source for pain/radiculopathy. 3. Multilevel central canal stenoses (L3-4: Mild. L4-5: Mild. L5-S1: Minor). 4. Left kidney artifact vs tiny (3.5 mm) lesion which is not fully characterized.
== END 2017-11-01 10:37 | disposition home or self-care (01) ==
LOC: RAD 10:36
PROVIDERS: ATTEND Nurse Practitioner Family
DX: M54.9 Dorsalgia, unspecified (principal); G89.29 Other chronic pain; R32 Unspecified urinary incontinence; R20.0 Anesthesia of skin

== ENCOUNTER 2017-11-07 08:03 | Outpatient (CLI) | payer OTHER ==
[2017-02-28 14:29] VITALS: BMI 57.2
== END 2017-11-07 08:04 | disposition home or self-care (01) ==
LOC: RAD 08:03
PROVIDERS: ATTEND Nurse Practitioner Family
DX: N28.9 Disorder of kidney and ureter, unspecified (principal); Y63.3 Inadvertent exposure of patient to radiation during medical care
CPT/HCPCS: 36415; 82565

== ENCOUNTER 2017-11-08 11:26 | Outpatient (CLI) | payer OTHER ==
[2017-02-28 14:29] VITALS: BMI 57.2
--- NOTE | 2017-11-08 13:41 | CT ---
EXAM: CT abdomen pelvis with and without contrast per renal mass protocol HISTORY: Concern for left renal lesion on MRI COMPARISON: CT 07/19/2011 and MRI 11/01/2017 TECHNIQUE: Serial axial images of the abdomen pelvis were performed before and after 100 mL is of Om nipaque IV contrast was administered. These were obtained from the lung bases through the inferior p avtar. These were viewed during arterial, renal cortical and delayed phases. FINDINGS: The lung bases are clear. Noncontrast evaluation of the kidneys demonstrates no acute abnormality or stone. Arterial images de monstrates normal renal arteries. There is normal arterial enhancement of the bilateral renal cortex . Contrast is noted in the bilateral renal collecting systems. There is a round low attenuation les ion in the inferior aspect of the left kidney measuring 0.9 cm, with Hounsfield units consistent with a cyst. No additional abnormality is identified. Liver is unremarkable. The gallbladder has been resected. Adrenal glands are unremarkable. The spl een demonstrates calcified granulomas. Pancreas is unremarkable. The stomach is nondistended. Ther e is a fat-containing right anterior abdominal hernia. Small bowel in the abdomen pelvis is normal. The colon is unremarkable. There has been a prior hysterectomy. The osseous structures demonstrate degenerative disease of the spine. IMPRESSION: 1. Left renal cyst with no additional abnormality identified. 2. Prior cholecystectomy and hysterectomy. 3. Fat containing right anterior abdominal hernia.
== END 2017-11-08 11:27 | disposition home or self-care (01) ==
LOC: RAD 11:26
PROVIDERS: ATTEND Nurse Practitioner Family
DX: N28.9 Disorder of kidney and ureter, unspecified (principal)

== ENCOUNTER 2018-02-13 12:57 | Outpatient (CLI) | payer OTHER ==
[2017-02-28 14:29] VITALS: BMI 57.2
--- NOTE | 2018-02-13 14:00 | US ---
EXAM: Renal ultrasound. History: Follow-up renal cysts. Comparison: CT abdomen pelvis 11/08/2017 Technique: Multiple sonographic images through the kidneys were obtained. Color duplex Doppler was used to interrogate vascular flow. Findings: Neither ureteral jet was visualized in the bladder. Bladder is not well distended. The liver is echogenic. The right kidney measures 10.1 cm in long length demonstrating normal cortical echogenicity without e vidence for hydronephrosis, mass or shadowing calculus. The left kidney measures 10.8 cm in long length demonstrating normal cortical echogenicity without ev idence for hydronephrosis, mass or shadowing calculus. Impression: 1. Sonographically normal kidneys. 2. Hepatic steatosis
== END 2018-02-13 12:58 | disposition home or self-care (01) ==
LOC: RAD 12:57
PROVIDERS: ATTEND Urology
DX: N28.1 Cyst of kidney, acquired (principal)
CPT/HCPCS: 81001; 87086

== ENCOUNTER 2018-03-11 14:57 | Outpatient (CLI) ==
[2017-02-28 14:29] VITALS: BMI 57.2
== END 2018-03-11 14:58 | disposition home or self-care (01) ==
LOC: RHC-LAB 14:57
PROVIDERS: ATTEND Nurse Practitioner Family
DX: E66.9 Obesity, unspecified (principal); I10 Essential (primary) hypertension
CPT/HCPCS: 36415; 80053; 80061; 85025

== ENCOUNTER 2018-09-09 15:02 | Outpatient (CLI) | payer OTHER ==
[2017-02-28 14:29] VITALS: BMI 57.2
--- NOTE | 2018-09-10 08:35 | DI ---
EXAM: Two views of the left shoulder. History: Left shoulder pain. Findings: Postsurgical changes of the cervical spine. No acute fracture or dislocation. Joint spac es are relatively preserved. No radiopaque foreign bodies. Impression: No acute osseous abnormality
--- NOTE | 2018-09-10 08:36 | DI ---
EXAM: Two views of the right hip. History: Right hip pain. Findings: No acute fracture or dislocation. Right hip joint space is preserved. No radiopaque fore ign bodies. There is facet hypertrophy within the lower lumbar spine. Impression: No acute osseous abnormality
--- NOTE | 2018-09-10 08:37 | DI ---
EXAM: Two views of the left humerus. History: Left arm pain. Findings: No acute fracture or dislocation. No abnormal calcifications or radiopaque foreign bodies . Joint spaces are relatively preserved. Impression: No acute osseous abnormality
== END 2018-09-09 15:03 | disposition home or self-care (01) ==
LOC: RHC-LAB 15:02 → RAD 15:03
PROVIDERS: ATTEND Nurse Practitioner Family
DX: M25.512 Pain in left shoulder (principal); M79.622 Pain in left upper arm; M25.551 Pain in right hip; I10 Essential (primary) hypertension; E78.1 Pure hyperglyceridemia; W19.XXXA Unspecified fall, initial encounter
CPT/HCPCS: 36415; 80053; 80061; 84443; 85025

== ENCOUNTER 2018-09-25 12:18 | Outpatient (CLI) ==
[2017-02-28 14:29] VITALS: BMI 57.2
--- NOTE | 2018-09-25 13:07 | DI ---
EXAM: Right hand three-view HISTORY: Pain in right hand COMPARISON: 03/01/2017 FINDINGS: No fracture or dislocation. Mild scattered osteophytic change throughout the hand. No fo lauren soft tissue abnormality. IMPERSSION: Mild osteoarthritis
--- NOTE | 2018-09-25 13:10 | DI ---
EXAM: Lumbar spine five views, including oblique views HISTORY: Unspecified fall, initial encounter COMPARISON: 11/28/2017 TECHNIQUE: Five views lumbar spine were performed, including oblique views FINDINGS: Sacroiliac joints intact. Sacral arcuate intact. Vertebral bodies normal height. No fra cture. No subluxation. Small multilevel marginal osteophyte formation. Mild multilevel interverteb ral disc space narrowing. Multilevel facet arthrosis. IMPRESSION: 1. No fracture or subluxation. 2. Chronic discogenic degenerative disease and facet arthrosis.
== END 2018-09-25 12:19 | disposition home or self-care (01) ==
LOC: RAD 12:18
PROVIDERS: ATTEND Nurse Practitioner Family
DX: M54.5 Low back pain (principal); M79.641 Pain in right hand; W19.XXXA Unspecified fall, initial encounter

== ENCOUNTER 2018-10-07 09:12 | Outpatient (CLI) | payer OTHER ==
[2017-02-28 14:29] VITALS: BMI 57.2
--- NOTE | 2018-10-07 09:54 | DI ---
EXAM: LEFT SHOULDER HISTORY: Shoulder pain FINDINGS: Left shoulder three-view. There is mild osteoarthritis of the glenohumeral and acromiocla vicular joints. There is no joint dislocation, separation or subluxation. No fracture. General bon e density is within normal limits. No discrete soft tissue pathology. IMPRESSION: 1. Mild arthropathy.
--- NOTE | 2018-10-07 11:30 | MRI ---
EXAM: MRI left shoulder without contrast. HISTORY: Left shoulder pain. Falls. Approximate 2 weeks ago. Decreased range of motion. No left shoulder surgery reported.. TECHNIQUE: Using a local coil on a high field strength magnet multiplanar multisequence magnet reson ance imaging was attempted of the left shoulder without intravenous or intra-articular gadolinium con trast. Examination of markedly limited diagnostic quality secondary to malpositioning as well as decreased s [id number]-da-ebyws/resolution and motion degradation.. COMPARISON: Three-view plain film examination left shoulder 10/07/2018. FINDINGS: A Type I I acromion. Coracoacromial ligament/arch intact with thickening. Left AC joint intact. Fatty infiltration deltoid muscle. Trace fluid subacromial/subdeltoid bursa. Muscle bulk of the rotator cuff shows no acute muscle strain or overt atrophy. Supraspinatus tendino sis. Far anterior 4 mm rim rent tear. No definitive full-thickness rotator cuff tear. Infraspinatu s insertional tendinosis. Low grade rim rent tearing over central to cranial insertional subscapular is fibers. The long head of the biceps tendon shows intact fibers located in expected position along the proximal extraarticular bicipital groove.. Suspected proximal tendinosis. The left humeral head internally rotated and slightly subluxed posterior. No acute fracture. Left g lenohumeral joint degenerative arthrosis/osteoarthrosis. Subchondral remodeling with cyst formation posterior left glenoid. Marginal osteophyte formation.. IMPRESSION: Examination of markedly limited diagnostic quality secondary to malpositioning as well a s decreased jienqt-dn-tbiug/resolution and motion degradation. Supraspinatus tendinosis. Far anterior 4 mm rim rent tear. Insertional infraspinatus tendinosis. N o definitive full-thickness rotator cuff tear identified. Trace fluid subacromial/subdeltoid bursa m ay reflect an overlying degree bursitis and/or be sequelae of prior shoulder injection. Correlate cl inically. Low grade rim rent tearing over central to cranial insertional subscapularis fibers. Proximal long h ead biceps tendinosis. Intact fibers identified. Left humeral head internally rotated and slightly subluxed posterior. No acute fracture. Left gleno humeral joint degenerative arthrosis/osteoarthrosis.
== END 2018-10-07 09:13 | disposition home or self-care (01) ==
LOC: RAD 09:12
PROVIDERS: ATTEND Pain Medicine Interventional Pain Medicine
DX: M25.512 Pain in left shoulder (principal); M75.82 Other shoulder lesions, left shoulder; M75.42 Impingement syndrome of left shoulder; Z68.44 Body mass index [BMI] 60.0-69.9, adult

== ENCOUNTER 2018-11-02 14:02 | Emergency (ER) ==
[2018-11-02 14:06] VITALS: BP 126/73; TEMP 99.2; BMI 66.4
--- NOTE | 2018-11-02 14:17 | ED.PDOC ---
General ED Provider: Dr. ALFA CAMPBELL MD Chief Complaint: Respiratory Complaint Stated Complaint: SOB, h/o asthma Time Seen by Physician: 14:11 Mode of Arrival: Walk-In Information Source: Patient Exam Limitations: No limitations Primary Care Provider: BHAKTI RAMIREZ Nursing and Triage Documentation Reviewed and Agree: Yes Does patient meet sepsis criteria?: No System Inflammatory Response Syndrome: Not Applicable Sepsis Protocol: For patient's 13 years and over: Temp is 96.8 and below OR 101 and greater Pulse >90 BPM Resp >20/minute Acutely Altered Mental Status Are patient's symptoms suggestive of a new infection, such as: -Pneumonia -Skin, Soft Tissue -Endocarditis -UTI -Bone, Joint Infection -Implantable Device -Acute Abdominal Infection -Wound Infection -Meningitis -Blood Stream Catheter Infection -Unknown Review of Systems - Review Of Systems Constitutional: Reports: Other (SOB) Eyes: Reports: No symptoms Ears, Nose, Mouth, Throat: Reports: No symptoms Respiratory: Reports: Cough Cardiac: Reports: No symptoms GI: Reports: No symptoms : Reports: No symptoms Musculoskeletal: Reports: No symptoms Skin: Reports: No symptoms Neurological: Reports: No symptoms Endocrine: Reports: No symptoms Hematologic/Lymphatic: Reports: No symptoms All Other Systems: Reviewed and Negative Past Medical History - Past Medical History Endocrine: Reports: None Cardiovascular: Reports: Hypertension Respiratory: Reports: Asthma Hematological: Reports: Anemia Gastrointestinal: Reports: None Genitourinary: Reports: None Neuro/Psych: Reports: Migraine, Anxiety, Depression Musculoskeletal: Reports: Arthritis Cancer: Reports: None Last Menstrual Period: none Other Pertinent Past Medical History: fibromyalgia, DDD spine - Surgical History General Surgical History: Reports: Hysterectomy, Appendectomy, Cholecystectomy - Family History Family History: Reports: Unknown - Social History Smoking Status: Former smoker Hx Substance Use: No Alcohol Screening: Occasionally Physical Exam - Physical Exam Appearance: Obese Ill-appearing: Mild Eyes: LEXI, EOMI, Conjunctiva clear ENT: Ears normal, Nose normal, Oropharynx normal Respiratory: Wheezes Cardiovascular: RRR, Pulses normal, No rub, No murmur GI/: Soft, Nontender, No masses, Bowel sounds normal, No Organomegaly Musculoskeletal: Normal strength, ROM intact, No edema, No calf tenderness Skin: Warm, Dry, Normal color Neurological: Sensation intact, Motor intact, Reflexes intact, Cranial nerves intact, Alert, Oriented Psychiatric: Affect appropriate, Mood appropriate Interpretation - Radiology Interpretation Radiology Results: Negative Critical Care Note - Critical Care Note Total Time (mins): 0 Course - Course Orders, Labs, Meds: Orders Category Date Time Status NEBULIZER TREATMENT Stat CARDIO 11/02/18 14:16 Completed NEBULIZER TREATMENT Stat CARDIO 11/02/18 15:13 Completed IV [ED IV/MEDIPORT/POWERPORT] .ONCE EMERGENCY 11/02/18 14:16 Active 0.9 % Sodium Chloride [Saline Flush] MEDS 11/02/18 14:16 Ordered 1 syr IVF PRN PRN Ipratropium/Albuterol Neb [Duoneb] MEDS 11/02/18 14:16 Discontinued 1 vial NEB ONCE STA Ipratropium/Albuterol Neb [Duoneb] MEDS 11/02/18 15:13 Discontinued 1 vial NEB ONCE STA Methylprednisolone Sod Succ/Pf [Solu-Medrol 125 mg] MEDS 11/02/18 14:16 Discontinued 125 mg IVP ONCE STA CXR [CHEST, 1V AP ONLY] Stat RADS 11/02/18 15:51 Completed Medications Generic Name Dose Route Start Last Admin Trade Name Freq PRN Reason Stop Dose Admin Sodium Chloride 1 syr 11/02/18 14:16 11/02/18 14:26 Saline Flush IVF 1 syr PRN PRN Administration To flush IV Discontinued Medications Generic Name Dose Route Start Last Admin Trade Name Freq PRN Reason Stop Dose Admin Albuterol/Ipratropium 1 vial 11/02/18 14:16 11/02/18 14:24 Duoneb NEB 11/02/18 14:17 1 vial ONCE STA Administration Albuterol/Ipratropium 1 vial 11/02/18 15:13 11/02/18 15:18 Duoneb NEB 11/02/18 15:14 1 vial ONCE STA Administration Methylprednisolone Sodium Succinate 125 mg 11/02/18 14:16 11/02/18 14:26 Solu-Medrol 125 Mg IVP 11/02/18 14:17 125 mg ONCE STA Administration Vital Signs: Temp Pulse Resp BP Pulse Ox 11/02/18 14:03 99.2 F 82 24 126/73 82 L Departure - Departure Time of Disposition: 17:40 Disposition: HOME SELF-CARE Discharge Problem: Asthma attack Qualifiers: Asthma severity: mild Asthma persistence: unspecified Qualified Code(s): J45.901 - Unspecified asthma with (acute) exacerbation Instructions: Asthma (ED) Condition: Good Pt referred to PMD for follow-up: Yes IPMP verified?: No Prescriptions: Prednisone [Deltasone] 20 mg PO DAILY 5 Days #5 tablet NS Allergies/Adverse Reactions: Allergies pregabalin [From Lyrica] Allergy (Verified 11/02/18 14:06) Patient c/o headache cefuroxime [From Ceftin] Adverse Reaction (Verified 11/02/18 14:06) IV Contrast Dye Allergy (Mild, Uncoded 11/07/17 09:56) Rash Home Medications: Ambulatory Orders Albuterol Sulfate [Proventil Hfa] 6.7 gm IH BID PRN 11/30/15 Alprazolam [Xanax] 0.5 mg PO DAILY 11/30/15 Amlodipine Besylate [Norvasc] 10 mg PO DAILY 11/30/15 Etodolac [Lodine] 400 mg PO BIDWM 11/30/15 Methocarbamol [Robaxin] 500 mg PO BID 11/30/15 Quetiapine Fumarate [Seroquel] 50 mg PO BEDTIME 11/30/15 Hydrocodone/Acetaminophen [[place] 10-325 Tablet] 1 each PO Q6HR PRN #12 tablet Alprazolam [Xanax] 0.5 mg PO every 6 hrs PRN 08/07/16 Bupropion HCl 100 mg PO TID 08/07/16 Escitalopram Oxalate 20 mg PO d 08/07/16 Quetiapine Fumarate 100 mg PO 2 tabs HS 08/07/16 Ibuprofen 800 mg PO PRN 05/13/17 Doxepin HCl 50 mg PO BEDTIME #30 caplet 09/09/18 Prednisone [Deltasone] 20 mg PO DAILY 5 Days #5 tablet NS 11/02/18 Transfer Form Completed: No Disposition Discussed With: Patient, Family (Rx prednisone, RT ER if worsens)
[2018-11-02] MEDS: DUONEB NEB STA ×2 (14:24→15:18)
[2018-11-02] MEDS: SOLU-MEDROL 125 MG IVP STA (14:26)
--- NOTE | 2018-11-02 16:21 | DI ---
EXAM: Single view chest. HISTORY: Shortness of breath COMPARISON: None. FINDINGS: The heart appears enlarged. The pulmonary vascularity appears borderline. Examination is significantly limited secondary to body habitus. Bibasilar opacities are seen. No evidence of pneum othorax or large airspace consolidation is seen. Lower cervical ACDF changes are seen. IMPRESSION: Significantly limited exam secondary to body habitus. No definite large airspace consolidation. Mild cardiomegaly.
== END 2018-11-02 18:08 | disposition home or self-care (01) ==
LOC: ED 14:02
DX: J45.901 Unspecified asthma with (acute) exacerbation (principal)
CPT/HCPCS: 94640; 96374; 99283

== ENCOUNTER 2018-12-22 15:30 | Outpatient (CLI) ==
--- NOTE | 2018-12-22 16:42 | DI ---
EXAM: Left knee, two-view HISTORY: Left knee pain COMPARISON: None FINDINGS: No fracture or dislocation. Small tricompartmental osteophytes. Mild narrowing medial co mpartment. No joint effusion. Diffuse subcutaneous edema. IMPERSSION: 1. No fracture or dislocation. 2. Mild tricompartmental osteoarthritis an 3. Diffuse subcutaneous edema.
== END 2018-12-22 15:31 | disposition home or self-care (01) ==
LOC: RAD 15:30
PROVIDERS: ATTEND Pain Medicine Interventional Pain Medicine
DX: M25.562 Pain in left knee (principal)